=== PATIENT | female | born 1980 | race Caucasian/White ===

== ENCOUNTER → 2023-07-20 06:46 | Outpatient (CLI) | payer OTHER, SELFPAY ==
--- NOTE | 2023-07-20 06:49 | DI.CT.S_ITS ---
PROCEDURE: CT SINUS SCREEN WO CON INDICATIONS: Chronic sinusitis, unspecified TECHNIQUE: Noncontrast 3.0 mm axial images acquired from the frontal sinuses to the mid-sella, with coronal and sagittal reformats. For radiation dose reduction, the following was used: automated exposure control, adjustment of mA and/or kV according to patient size. COMPARISON: None. FINDINGS: Image quality: Excellent. Maxillary Sinuses: Moderate mucosal thickening can be seen within the maxillary sinuses, right worse than left. There is demineralization seen of the superior medial xavier of the maxillary sinuses. Ethmoid Air Cells: Moderate mucosal thickening can be seen within the ethmoid air cells, left worse than right. There is demineralization of ethmoid air cell septations. Sphenoid Sinuses: No bony remodeling or destruction. Minimal mucosal thickening can be seen within the sphenoid sinuses. Frontal Sinuses: No bony remodeling or destruction. Sinuses are clear. Ostiomeatal Complexes: Ostiomeatal complexes are patent, yet they are highly constitutionally narrowed. There further narrowed by soft tissue thickening. The ostiomeatal complexes are demineralized. No Mel cells. Miscellaneous: Visualized intra-orbital contents are normal. No aracely bullosa or paradoxical turbinate curvature. There is minimal to mild leftward nasal septal deviation. IMPRESSION: Paranasal sinus disease can be seen, which is worst within the maxillary sinuses. The ostiomeatal complexes are constitutionally narrowed and are further narrowed by soft tissue thickening. Areas of bony demineralization are seen, which are consistent with chronic sinusitis. There is minimal to mild leftward nasal septal deviation. Dictated by: Ab Naqvi M.D. on 07/20/2023 at 9:55 Approved by: Ab Naqvi M.D. on 07/20/2023 at 9:57
== END ==
LOC: CT 06:47
PROVIDERS: Referring Provider Allergy & Immunology; Visit Provider Allergy & Immunology
DX: J32.8 Other chronic sinusitis (principal); R09.82 Postnasal drip
CPT/HCPCS: 70486